=== PATIENT | male | born 2000 | race Caucasian/White ===

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

== ENCOUNTER 2019-05-19 05:16 | Emergency (ER) | payer MEDICAID ==
[~2019-05-19] VITALS: Ht 188 cm; Wt 79.7 kg
[2019-05-19 05:17] VITALS: BP 110/36
--- NOTE | 2019-05-19 05:42 | NUR ---
Pt alert and resting on gurney. Pt reports bilateral upper quadrant pain and vomiting x2 this AM. No fevers or diarrhea. Pt abd soft, non-tender with hyperactive BS. Pt in gown. Pt placed on pulse ox/HR monitor. Call light at bedside.
--- NOTE | 2019-05-19 05:57 | NUR ---
Lab at bedside for draw. PIV placed. Pt ambulatory to restroom for sample.
[2019-05-19] MEDS ORDERED: SODIUM CHLORIDE FLUSH 10ML SYR IVF ONE (06:00)
[2019-05-19 06:01] LABS: BASOPHILS # (AUTO) 0.01 x10^3/uL (0-0.3); BASOPHILS % (AUTO) 0 % (0-1); EOSINOPHILS % (AUTO) 4 % (1-7); LYMPHOCYTES # (AUTO) 1.75 x10^3/uL (1-6.1); LYMPHOCYTES % (AUTO) 38 % (22-44); MD NO; MEAN CORPUSCULAR HEMOGLOBIN 29.9 pg (27.5-34.5); MEAN PLATELET VOLUME 10.2 fL (7.4-10.4); MONOCYTES # (AUTO) 0.29 x10^3/uL (0-1.4); MONOCYTES % (AUTO) 6 % (2-9); NEUTROPHILS # (AUTO) 2.36 x10^3/uL (1.8-8.0); NEUTROPHILS % (AUTO) 51 % (42-75); PLATELET COUNT 161 x10^3/uL (130-400); RED BLOOD COUNT 5.14 x10^6/uL (4.38-5.82); RED CELL DISTRIBUTION WIDTH 13.6 % (9.4-14.8)
[2019-05-19 06:12] LABS: ALANINE AMINOTRANSFERASE 23 U/L (12-78); ANION GAP 4 mmol/L (5-15); CALCIUM 9.1 mg/dL (8.5-10.1); CHLORIDE 111 mmol/L (98-107); CREATININE 0.99 mg/dL (0.7-1.3)
[2019-05-19 06:14] LABS: ALKALINE PHOSPHATASE 82 U/L (45-117); BILIRUBIN,TOTAL 1.4 mg/dL (0.2-1.0); TOTAL PROTEIN 7.4 g/dL (6.4-8.2)
[2019-05-19 06:23] LABS: MICROSCOPIC NOT IND
[2019-05-19 06:27] LABS: CULTURE INDICATED? NO
--- NOTE | 2019-05-19 06:48 | NUR ---
REPORT RECIEVED FROM JERZY WAY. ASSUMING PRIMARY CARE OF PT.
--- NOTE | 2019-05-19 06:49 | NUR ---
Report given to JERZY Nichole
--- NOTE | 2019-05-19 07:09 | NUR ---
PT DISCHARGED HOME IN A STABLE CONDITION. PIV WAS REMOVED WTH TIP INTACT. DC INSTRUCTIONS WERE DISCUSSED WITH PT. PT VERBALIZED UNDERSTANDING. NO FURTHER QUESTIONS OR CONCERNS WERE EXPRESSED AT THAT TIME. PT AMBULATED WITH A STEADY GAIT TO DC DESK.
== END 2019-05-19 07:11 | disposition home or self-care (01) ==
LOC: ED 07:07
DX: R10.31 Right lower quadrant pain (principal); R10.32 Left lower quadrant pain; F17.200 Nicotine dependence, unspecified, uncomplicated
CPT/HCPCS: 36415; 80053; 81003; 83690; 85025; 99283

== ENCOUNTER 2019-12-03 22:25 | Emergency (ER) | payer MEDICAID ==
[~2019-12-03] VITALS: Ht 188 cm; Wt 81.0 kg
[2019-12-03 22:27] VITALS: BP 146/71
== END 2019-12-03 23:24 | disposition home or self-care (01) ==
LOC: ED 22:41
DX: S00.81XA Abrasion of other part of head, initial encounter (principal); S60.512A Abrasion of left hand, initial encounter; S60.511A Abrasion of right hand, initial encounter; F41.1 Generalized anxiety disorder; X58.XXXA Exposure to other specified factors, initial encounter; Y93.89 Activity, other specified; Y92.89 Other specified places as the place of occurrence of the external cause; Y99.8 Other external cause status
CPT/HCPCS: 99283

== ENCOUNTER 2020-08-07 00:12 | Emergency (ER) | payer MEDICAID ==
[~2020-08-07] VITALS: Ht 182.9 cm; Wt 87.0 kg
[2020-08-07 00:20] VITALS: BP 135/61
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
== END 2020-08-07 00:57 | disposition home or self-care (01) ==
LOC: ED 00:55
DX: F41.1 Generalized anxiety disorder (principal); F10.10 Alcohol abuse, uncomplicated; F12.10 Cannabis abuse, uncomplicated; Y90.0 Blood alcohol level of less than 20 mg/100 ml
CPT/HCPCS: 99283